=== PATIENT | female | born 1995 | race Caucasian/White ===

== ENCOUNTER → 2019-12-02 12:42 | Outpatient (CLI) | payer OTHER, SELFPAY ==
--- NOTE | 2019-12-02 | DI.RAD.S_ITS ---
PROCEDURE: FL VOIDING CYSTOURETHROGRAM INDICATIONS: urinary tract infection, site unspecified TECHNIQUE: The bladder was filled with iodinated contrast by gravity pressure through a Swain catheter. Fluoroscopic filming was then performed of the bladder, ureteral and renal regions, and urethra during patient voiding. COMPARISON: None. FINDINGS: Wildlife Control Agent view: No suspicious abdominal calcifications. Bowel gas pattern is normal. Bladder: The bladder is normal in size and contour. There is right-sided vesicoureteral reflux visualized during the filling and voiding phase, which extends to the level of the renal collecting system. No contrast extravasation. No definite left-sided vesicoureteral reflux is seen Urethra: Swain catheter tubing is present. The surrounding urethral lumen is normal in morphology. IMPRESSION: Right-sided vesicoureteral reflux to level of the renal collecting system No evidence of left-sided vesicoureteral reflux Dictated by: Llao Menendez M.D. on 12/02/2019 at 15:26 Approved by: Lalo Menendez M.D. on 12/02/2019 at 15:28
== END ==
PROVIDERS: PCP Physician Assistant; Visit Provider Specialist
DX: N39.0 Urinary tract infection, site not specified (principal); N13.70 Vesicoureteral-reflux, unspecified
CPT/HCPCS: 74455

== ENCOUNTER 2020-01-19 09:59 | Inpatient (IN) | payer OTHER, SELFPAY ==
[2020-01-08 13:52] VITALS: BMI 25.1
[2020-01-19] VITALS (14 sets, daily range): BP systolic 102–146; BP diastolic 64–81; PULSE 81–103; RESP 10–19; TEMP 36.1–37.4; O2SAT 94–100; BMI 24.9
[2020-01-19] MEDS: LACTATED RINGERS 1,000 ML 42 ML IV ×2 (10:28→14:22)
--- NOTE | 2020-01-19 12:41 | PM.PREOP ---
Pre-operative Note Interval Note History & Physical reviewed/Exam performed by Physician: Yes Changes to H&P: No H&P completed within 30 days and has changed as indicated here:: There are no changes to the history and physical examinations scanned on file.
[2020-01-19] MEDS: ACETAMINOPHEN IV 1,000 MG/100 ML VIAL 400 MG IV (12:42)
[2020-01-19] MEDS: CEFAZOLIN 2 GM/100 ML FROZ.PIGGY IV (12:45)
--- NOTE | 2020-01-19 13:46 | SUR.OPER ---
Supine on padded OR bed, head on pillow, arms secured on padded arm boards at <90 degrees abduction, LEGS FROG LEGGED AND SUPPORTED WITH BLANKETS AND GEL PADS. SEAT BELT IN PLACE
[2020-01-19] MEDS: BUPIVACAINE 0.25% W/ EPI 30 ML VIAL INJ (14:19)
[2020-01-19] MEDS: BUPIVACAINE LIPOSOME 266 MG/20 ML VIAL INJ (14:20)
--- NOTE | 2020-01-19 16:13 | P.OP_ITS ---
Operative Date/Time/Diagnoses Date of procedure: 01/19/20 Time of procedure: 16:13 Pre-op diagnosis: Grade 3 right vesicoureteral reflux Post-op diagnosis: same Procedure & Clinicians Procedure: 1. Right ureteral reimplantation. Same procedure as scheduled: Yes Indications: 1. Grade 3 right vesicoureteral reflux. 2. Recurring UTI. Surgeon: Jethro Lindsay Human Resources Assistant Manager: Natalya Meredith Click Yes if Unassisted: No Anesthesia Type: General and Spinal Operative Notes Findings: 1. The bladder urothelium was normal throughout. 2. The right ureteral orifice was mildly patulous and more laterally position. 3. Abdominal wall tissue planes normal. Closure Type: primary Specimen(s): none sent Applied: catheter and other (Six Polish by 22 cm double-J ureteral stent) Estimated Blood Loss (mL): 2 Blood products transfused: none Tourniquet time (min): 0 Procedure in detail: The patient was positioned supine after placement of Duramorph spinal anesthesia and was provided general anesthesia. The lower abdomen genitalia and groin and vaginal vault were prepped and draped in sterile fashion. She was then repositioned in semi frog-leg supine. A 20 Polish Swain catheter was inserted into the bladder without complication. A low transverse Pfannenstiel incision was then made about 1 fingerbreadth above the pubic symphysis. The subcutaneous fat and Rupert's fascial layer were divi ded using blunt and cautery technique. The rectus fascia was then divided transversely using sharp technique. The rectus muscle was then divided in the midline and gently retracted laterally. The bladder was filled to 300 cc of sterile saline via the previously placed catheter. The dome and anterior bladder wall were then identified. A solution of 0.25% Marcaine with epinephrine was then used to infiltrate the midline anterior bladder wall and midline cystotomy was then created. Retractors were positioned appropriately for visualization of the bladder trigone and orifices. The same local anesthetic was used to infiltrate S but in the area around the right ureteral orifice and a mild muscular wall the bladder. A 4 Polish whistle-tip catheter was then advanced into the right ureter upper collecting system under direct visualization. It was secured in place using a 4 0 Vicryl. Now applying gentle traction with the whistle-tip catheter the needlepoint cautery was used just create a circumferential incision around the right ureteral orifice continued meticulous the traction blunt cautery dissection were then performed to free the ureter up from the connections to the muscular wall of the bladder wall. Perivesical fat was visualized. The mucosa and submucosal of the trigone were then infiltrated with local anesthetic. A submucosal tunnel was then created using blunt sharp technique. The right ureter was then brought across the trigone beneath the mucosa and brought out through an aperture made just distal to the [place] left ureteral orifice. Two interrupted 2 0 Monocryl sutures were used to secure the newly position ureter to the right muscular wall of the bladder. Interrupted 4 0 Vicryl were then used to reanastomose the margins of the right ureteral orifice to the mucosa of the bladder in its new position. The mucosa of the right bladder wall was then closed with a running 4 0 Vicryl. The whistle-tip catheter was then removed and and a guidewire was advanced into the right upper collecting system. Over this a 6 Polish by 2 22 cm double-J ureteral stent was positioned satisfactorily. No retrieval line was left attached. The anterior midline cystotomy was then closed in 2 layers by 1st reapproximating the mucosal muscular using a running vertical mattress of 4 0 Vicryl. Next the outer serosal muscular layer was then closed using an imbricating technique again with a running vertical mattress with 2 0 Monocryl. A 15 Polish drain was then brought out through a separate stab incision to the right inferior to the Pfannenstiel incision. The length of the drain was trimmed appropriately and positioned in the space of Retzius. It was secured to the skin with 2 0 silk. The rectus fascia was then closed using running 0 PDS beginning at the lateral apex and on each side and then time with another together at approximately the midline. The subcutaneous fat Rupert's fascia was then reapproximated with running 3 0 Vicryl. Finally the skin was closed with a running subcuticular 4 0 Monocryl. Appropriately tailored Telfa was applied to the incision line and the drain and incision were then covered with a Bioclusive op site. The catheter w as placed to gravity drainage. The patient was then awakened transferred to [facility] [place] and transferred to recovery in stable condition. Complications: none Post-operative Condition: stable Disposition: PACU Plan for aftercare: Transfer to acute care.
[2020-01-19] MEDS: diphenhydrAMINE 50 MG/ML VIAL 25 MG IV (16:24)
--- NOTE | 2020-01-19 17:11 | SUR.PHASEI ---
Report to [facility]. Pt was then transferred to room 211 in stable condition. Pt did not require any pain medication for discomfort, but did however receive 25mg of benadryl r/t itching and nasal congestion. Family was at BS.
[2020-01-19] MEDS: BUTORPHANOL 1 MG/ML VIAL 0.5 MG IV (17:27)
[2020-01-19] MEDS: JOLESSA 1 EACH PO (22:04)
[2020-01-19] MEDS: SERTRALINE 50 MG TABLET 100 MG PO (22:04)
[2020-01-19] MEDS: OXYCODONE IR 5 MG TABLET PO (23:45)
[2020-01-20] VITALS (9 sets, daily range): BP systolic 104–129; BP diastolic 54–78; PULSE 71–86; RESP 16–18; TEMP 36.6–37.2; O2SAT 96–100
[2020-01-20] MEDS: ONDANSETRON 4 MG/2 ML INJ IV (02:05)
--- NOTE | 2020-01-20 06:40 | PC.NURSE ---
Upon getting up to use BSC pt feeling some light-headedness and feeling like shes going to pass out; Given some water and saltines and back into bed and it resolved. Same issue arose this morning and is subsiding with rest. Spoke to pt abt fall risks and being slow to get OOB
--- NOTE | 2020-01-20 07:27 | P.PN_ITS ---
Subjective Subjective Date Patient Seen: 01/20/20 Time Patient Seen: 07:28 Interval history: She reports some dysphoria and lightheadedness when up last evening. She has also noticed mild itching but no rash. She complains of feeling of need to ?pee?. Denies nausea or vomiting Exam Vital Signs (past 8 hours): - 01/20/20 02:17 01/20/20 03:29 Temperature 98.2 F 98.4 F Pulse Rate 73 81 Respiratory Rate 18 Blood Pressure 111/54 L 104/57 L Pulse Oximetry 97 Oxygen Delivery Method Room Air Oxygen Flow Rate 0 Narrative Exam Narrative: She is lying comfortably in bed in no distress. Chest is equal and nonlabored bilaterally. Heart regular rate. Abdomen soft nondistended JACQUELYN drain and incisional dressings intact. JACQUELYN drain has scant serosanguineous output. Urine is light maroon no clots. Extremities no pallor edema or tenderness. Sequential compression devices in pl [place]. Objective ECG Impression: 1. Stable postoperative day 1. Status post right ureteral reimplantation. 2. Bladder pain and spasms. Assessment & Plan Assessment & Plan narrative: Assessment: 1. Stable postoperative day 1. Status post right ureteral reimplantation. 2. Bladder spasms. 3. Mild itching without rash. Plan: 1. Increase diet and activity today. 2. Belladonna and opium suppository 1 per rectum q.4 hours. 3. Monitor her itching complaints. Benadryl ordered.
[2020-01-20] MEDS: BELLADONNA/OPIUM SUPPOSITORIES 1 EACH PR ×2 (08:22→19:26)
[2020-01-20] MEDS: OXYCODONE IR 5 MG TABLET PO (08:22)
[2020-01-20] MEDS: KETOROLAC 10 MG TABLET PO ×2 (12:03→18:14)
--- NOTE | 2020-01-20 13:45 | CM.DANOTE ---
DCP Assessment: EMR reviewed: Patient is a 24 yr old female who was admitted for Ureteral Procedure preformed by Dr Lindsay. CM/Rn met with patient at the bedside and explained role. Patient was alert and oriented x3 at time of CM/Rn visit. Patient is Independent with all ADL's and Driving at base line. Patient currently lives in a single level home with her spouse Peter. Patient does not use any DME at home at base line. Patients plans on being home for two weeks to assist patient with recovery. I: Prime Plan: D/C home with spouse Peter when medically stable. No identified D/C planning needs noted at this time. CM department will follow to assist with any D/C planning needs that may arise. Susi Rosa RN Discharge Planning/Care Management CM Discharge Assessment Start: 01/20/20 13:43 Freq: Status: Active Protocol: Document 01/20/20 13:43 HS (Rec: 01/20/20 13:45 [id number]) Discharge Planning Assessment Assigned [address] Pressman Susi Rosa RN DPOA/Assigned Designee Name Peter Lee (spouse) Contact Information [phone] Advance Directives? No History Provided By Patient,Medical Record Has Patient been admitted in last 30 No days? Prior Living Arrangements House Household Members spouse Type of transporation used prior to Drives own vehicle admit Independent with ADL's Yes Is patient alert and oriented? Yes Caregiver for Another No Barriers to Discharge No Discharge Plan Home Referrals Initiated None needed Whiteboard Updated in Patient Room with Yes name and ext. # of [address] Pressman Review Status In Process Next Review Type Continued Stay Review Pre-Anesthesia Assessment Start: 01/08/20 13:52 Freq: Status: Active Protocol: Document 01/08/20 13:52 CAB (Rec: 01/08/20 14:55 CAB [id number]) Pre-Anesthesia Assessment Patient Information Reviewed Via Phone Assessment Assessment Completed With Patient Primary Care Provider Peter Verma Seen Specialist in Last 12 Months Yes Specialist Seen Recreation Officer,Urologist Primary Language Azerbaijani Height 154.94 cm Weight 60.328 kg Body Mass Index (BMI) 25.1 Hearing Ability Normal Visual Assist Glasses Dentition Type Teeth, Natural Present Barriers to Learning None Other Aids No Hx Anesthesia Reactions No: Only surgery was adenoids as a child Hx Family Anesthesia Reaction No Hx Malignant Hyperthermia No Hx Blood Transfusions No Comment Wants to discuss reduced use of opioids, family hx of addiction Anesthesia Review Requested No alcohol intake never Smoking Status Never smoker Substance Use Type marijuana Pain Present Pain Reported Comment Right flank pain Musculoskeletal Symptoms Joint Pain History of Falling (Recent or History of No ) Patient is completely paralyzed or No completely immobile Mental Status Oriented to own ability Is patient on oxygen? No Does patient have RDZ/SOB No Hx Sleep Apnea No Currently Taking a Beta [place] No Can You Climb a Flight of Stairs Without Yes SOB Hx Chest Pain No Hx SOB No Hx Syncope or Dizziness No Anti-Coagulant Therapy No Has a Modeling Manager No Cardiac Testing No Hx Pacemaker/ICD No Pacemaker Rep Required? No Diet Type At Home Regular dysphagia No Gastrointestinal Symptoms Reflux Genitourinary Symptoms Difficulty Urinating,Flank Pain Bladder Pattern Frequency,Retention,Urgency Urinary Catheter Present No Hx Urinary Self Catheterization No Diabetes No Patient No Lactating No Hx Drug Resistant Organism No Presence of External or Internal Medical No Devices Burleson exposure No Have you had any close contact with No someone diagnosed with NOVEL CORONAVIRUS ? Have you traveled outside the [facility] in the last 30 days? Marital Status Lives With spouse Prior Living Arrangements House Number of Floors (Floors) One Floor Support System Parent(s),Spouse Does the Patient Have Assistance After Yes Surgery Patient Discharge Plan Description Return Home Feels Safe in Current Environment Yes Been Physically Hurt or Threatened By a No Person in Current Environment Do you have thoughts of harming yourself None or others? Are you currently considering suicide? No Do you have a plan to hurt yourself or No Plan others? Do You Have Any Spiritual Beliefs That No May Affect Your HC Choices? Do You Have Any Cultural Practices That No May Affect Your HC Choices? Comment Cade Who Can We Speak to About Patient's Care Family, friends Identifying Code for Release of Patient Declines to issue Information Health Care Proxy/Next of Kin Peter () Health Care Proxy Emergency Contact Name Peter () Emergency Contact Advance Directives? No Power of Knot Cutter No PAC Instructions Do not shave/clip surgical site,Medications to take/avoid ,No ETOH/petroleum product on skin DOS,NPO,Post-op transportation,Sensory aids, Sturdy shoes/comfortable clothes,Do not bring valuables and remove jewelry
--- NOTE | 2020-01-20 21:27 | PC.NURSE ---
Discharge Note Patient discharged this afternoon via verbal telephone order per Dr Lindsay. Orders also received to call in Toradol prescription to patients pharmacy. PIV and JACQUELYN drain removed per order by this RN without incident. Discharge instructions given to patient, no questions/concerns. All belongings packed along with supplies to manage catheter care at home. Patient taken down via wheelchair by this RN to personal vehicle.
--- NOTE | 2020-01-21 07:08 | PM.DS.1 ---
History of Present Illness History of Present Illness Date Patient Seen: 01/18/20 Time Patient Seen: 17:40 Chief complaint: Right Cystoscopy w/Ureteral Procedure Discharge Providers Provider Date of admission: 01/19/20 09:59 Discharge Date: 01/20/20 Primary care physician: Peter Verma PA-C Consults: 01/19/20 16:01 Consult to Discharge Planning Routine Comment: Discharge provider: Jethro Lindsay MD Summary Hospital Course Discharge Diagnosis: 1. Status post right ureteral reimplantation. 2. History of recurrent UTIs. Hospital Course: The patient was admitted on the morning of 01/19/2020 and underwent uncomplicated right cross-trigonal ureteral reimplantation under general and Duramorph spinal anesthesia. Her postoperative course was remarkable for dysphoria related to p.o. opioids. Once oxycodone was discontinued and she was provided ketorolac she rapidly improved. By mid did postoperative day 1. She was ambulating without assistance passing flatus tolerating a general diet had excellent pain control. She requested discharge. Postoperative activity hygiene and driving instructions were provided an appointment will be scheduled in my office for catheter removal on 01/28/2020. A prescription for ketorolac 10 mg, 1 p.o. q.6 hours as needed, 20 provided. Status at Discharge Cognitive/behavioral status at discharge: oriented Functional status at discharge: independent ambulation Overall status at discharge: patient is back to baseline Time Spent with Patient Time spent: Less than 30 minutes Exam Vital Signs (past 8 hours): Oxygen Delivery Method Room Air Oxygen Flow Rate 0 Narrative Exam Narrative: Drain and dressings were removed. Discharge Plan Discharge Plan Patient Disposition: Home Discharge comment: 1. Schedule post op appt. 01/28/20. Discharge orders & Medications Prescriptions: Continued sertraline 100 mg Tablet 100 mg PO BEDTIME RF: 0 levonorgestrel-ethinyl estrad [Jolessa] 0.15 mg-30 mcg (91) Tablets,Dose Pack,3 Month 1 tab PO BEDTIME RF: 0 Follow up/Referrals: Peter Verma PA-C [Primary Care Provider] - Jethro Lindsay MD [Physician] - Diet/Activity/Treatments Diet: Regular Activity: As tolerated Catheter: 2-way Swain Other treatments: You may restart your home medications. Skin/Wound/Dressing Care Skin care: You may shower, no bathing or soaking for 2 weeks. Report to your healthcare provider any signs of infection, such as:: chills, fever, night sweats, increased pain, unusual drainage and unusual redness Dressing: Open to air Visit Report/Discharge Packet Instructions: How to Care for Your Swain Catheter -- Female, Ketorolac, DI for Ureteral Reimplantation in Adults, Open Ureteral Reimplantation Discharge Data Primary Care Provider: Peter Verma Discharges patient from system. Discharge Date/Time: 01/20/20 20:10
== END 2020-01-20 20:10 | disposition home or self-care (01) | DRG 660 ==
PROVIDERS: Admitting Provider Specialist; PCP Physician Assistant; Referring Provider Specialist; Visit Provider Specialist
PROC: 0TS60ZZ Reposition Right Ureter, Open Approach (ICD-10-PCS; principal; 2020-01-19 11:15)
DX: N13.70 Vesicoureteral-reflux, unspecified (principal); N39.0 Urinary tract infection, site not specified; F41.9 Anxiety disorder, unspecified; N32.89 Other specified disorders of bladder; L29.9 Pruritus, unspecified; F99 Mental disorder, not otherwise specified; T40.2X5A Adverse effect of other opioids, initial encounter
CPT/HCPCS: 87086; 94762; C9290; J0131; J0595; J0690; J1100; J1200; J2250; J2274; J2405; J2704; J3010

== ENCOUNTER → 2020-03-08 10:04 | Outpatient (CLI) | payer OTHER, SELFPAY ==
[2020-01-19 11:28] VITALS: BMI 24.9
--- NOTE | 2020-03-08 | DI.CT.S_ITS ---
PROCEDURE: CT PEL WO CON INDICATIONS: LEFT LOWER QUADRANT PAIN. Patient states that she had a right ureteral implant procedure approximately one month ago, and that the ureter now implants on the left. TECHNIQUE: Noncontrast 3 mm axial sections acquired through the bony pelvis, with coronal and sagittal reformatting. COMPARISON: [facility], CT, CT KUB, 10/15/2019, 16:15. FINDINGS: Image quality: Excellent. Bones: Unremarkable Soft tissues: There is a small ovoid thin walled fluid collection posterior to the rectum, immediately anterior to the distal sacrum measuring approximately 1.9 x 2.7 x 3.6 cm, possibly representing a small postoperative lymphocele. The distal ureters are not dilated. No abscess. IMPRESSION: Probable small postoperative lymphocele posterior to the rectum in the presacral space. Otherwise unremarkable. Dictated by: Arnaldo Dobbs M.D. on 03/08/2020 at 10:40 Approved by: Arnaldo Dobbs M.D. on 03/08/2020 at 10:44
== END ==
PROVIDERS: PCP Physician Assistant; Referring Provider Specialist; Visit Provider Specialist
DX: R10.32 Left lower quadrant pain (principal)
CPT/HCPCS: 72192

== ENCOUNTER → 2020-03-19 09:16 | Outpatient (CLI) | payer OTHER, SELFPAY ==
[2020-01-19 11:28] VITALS: BMI 24.9
== END ==
PROVIDERS: PCP Physician Assistant; Referring Provider Specialist; Visit Provider Specialist
DX: N13.70 Vesicoureteral-reflux, unspecified (principal); Z53.8 Procedure and treatment not carried out for other reasons

== ENCOUNTER → 2020-04-01 10:19 | Outpatient (CLI) | payer OTHER, SELFPAY ==
[2020-01-19 11:28] VITALS: BMI 24.9
--- NOTE | 2020-04-01 | DI.RAD.S_ITS ---
PROCEDURE: FL VOIDING CYSTOURETHROGRAM INDICATIONS: vesicourtereral reflux, unspec TECHNIQUE: The bladder was filled with iodinated contrast by gravity pressure through a Swain catheter. Fluoroscopic filming was then performed of the bladder, ureteral and renal regions, and urethra during patient voiding. COMPARISON: [place], [place] VOIDING CYSTOURETHROGRAM, 12/02/2019, 13:18. FINDINGS: The patient reports prior history of reflux and recurrent urinary tract infections. Ureteral reimplantation procedure. Court Administrator view: No suspicious abdominal calcifications. Bowel gas pattern is normal. Bladder: The bladder is normal in size and contour. No vesicoureteral reflux. No contrast extravasation. Urethra: Swain catheter tubing is present. The surrounding urethral lumen is normal in morphology. IMPRESSION: No vesicoureteral reflux, bladder empties fully. No urinary tract stone suspected. Findings discussed with the patient. Dictated by: Ranjit Cleaning M.D. on 04/01/2020 at 12:31 Approved by: Ranjit Cleaning M.D. on 04/01/2020 at 12:32
== END ==
PROVIDERS: PCP Physician Assistant; Referring Provider Specialist; Visit Provider Specialist
DX: N13.70 Vesicoureteral-reflux, unspecified (principal)
CPT/HCPCS: 74455

== ENCOUNTER → 2020-07-30 16:28 | Outpatient (CLI) | payer OTHER, SELFPAY ==
[2020-01-19 11:28] VITALS: BMI 24.9
[2020-07-30 17:58] LABS: Appearance Urine UA SL CLOUDY; Bilirubin Urine UA NEGATIVE (NEGATIVE); Color Urine UA YELLOW; Glucose Urine UA NEGATIVE (Negative); Ketones Urine UA TRACE (NEGATIVE); Leukocyte Esterase Urine UA NEGATIVE (NEGATIVE); Nitrite Urine UA NEGATIVE (Negative); Occult Blood Urine UA 2+ (Negative); Protein Urine UA NEGATIVE (Negative); Urobilinogen Urine UA 0.2 E.U./dL (0.2)
[2020-07-30 18:22] LABS: Amorphous Sediment Urine 2+; Bacteria Urine None Seen; Culture Indicated Urine Cult Not Indicated; Mucus Urine 2+ (Negative); RBC Urine 1-5/HPF (0-5/HPF); Squamous Epithelial Cell Urine 5-10 /HPF (0-5/HPF); WBC Urine 0-1/HPF (0-5/HPF)
== END ==
PROVIDERS: PCP Physician Assistant; Referring Provider Specialist; Visit Provider Specialist
DX: N39.0 Urinary tract infection, site not specified (principal)
CPT/HCPCS: 81003; 81015

== ENCOUNTER 2020-11-12 17:50 | Emergency (ER) | payer OTHER, SELFPAY ==
[2020-01-19 11:28] VITALS: BMI 24.9
[2020-11-12 17:53] VITALS: BP 169/104; PULSE 90; RESP 16; TEMP 37.2; O2SAT 100
--- NOTE | 2020-11-12 18:28 | DI.RAD.S_ITS ---
PROCEDURE: XR CHEST 1V INDICATIONS: chest pain TECHNIQUE: One view of the chest was acquired. COMPARISON: None. FINDINGS: Surgical changes and devices: None. Lungs and pleura: Lungs are clear. No pleural effusions or pneumothorax. Mediastinum: Mediastinal contours appear normal. Heart size is normal. Bones and chest wall: No suspicious bony lesions. Overlying soft tissues appear unremarkable. IMPRESSION: No acute disease. Dictated by: Lalo Menendez M.D. on 11/12/2020 at 20:18 Approved by: Lalo Menendez M.D. on 11/12/2020 at 20:19
[2020-11-12 18:40] LABS: Prothrombin Time 11.7 SECONDS (10.1-12.7)
[2020-11-12 18:43] LABS: PTT Partial Thromboplastin Tim 27 SECONDS (26.4-36.2)
[2020-11-12 18:44] LABS: Alanine Aminotransferase 13 IU/L (<35); Albumin 4.3 g/dL (3.5-5.0); Albumin Globulin Ratio 1.3 (1.0-2.8); Alkaline Phosphatase 57 U/L (38-126); Aspartate Aminotransferase 31 IU/L (14-36); BUN Creatinine Ratio 20.7 (6-22); Bilirubin Total 0.2 mg/dL (0.2-1.3); Blood Urea Nitrogen 12 mg/dL (7-17); Calcium 9.1 mg/dL (8.4-10.2); Carbon Dioxide 23 mmol/L (22-32); Chloride 107 mmol/L (98-107); Creatine Kinase 102 U/L (30-135); Estimated Glomerular Filt Rate > 60.0 mL/min (>60); Globulin 3.4 g/dL (1.7-4.1); Glucose 106 mg/dL (70-100); HEMOLYSIS 16 (0-50); Lipase 36 U/L (23-300); Potassium 3.9 mmol/L (3.4-5.1); Sodium 139 mmol/L (137-145); Total Protein 7.7 g/dL (6.3-8.2)
[2020-11-12 18:45] LABS: Add Manual Diff / Slide Review NO; Basophils Absolute Auto 100 /uL (0-100); Basophils Percent Auto 1.1 % (0-2); Eosinophils Absolute Auto 300 /uL (0-450); Hematocrit 39.3 % (36-46); Hemoglobin 13.3 g/dL (12.0-16.0); Lymphocytes Absolute Auto 2900 /uL (1100-4500); Lymphocytes Percent Auto 35.3 % (25-40); Mean Corpuscular HGB Conc 33.9 % (30-36); Mean Corpuscular Volume 94.6 fL (80-100); Monocytes Absolute Auto 700 /uL (0-900); Neutrophils Absolute Auto 4300 /uL (1500-7000); Neutrophils Percent Auto 51.6 % (50-75); Platelet Count 320 X10^3/uL (150-400); Red Blood Cell Count 4.16 X10^6/uL (4.0-5.2); Red Cell Distribution Width 13.1 % (11.6-14.8); White Blood Cell Count 8.3 X10^3/uL (4.5-11.0)
[2020-11-12 18:56] LABS: Troponin I < 0.012 ng/mL (0.01-0.034)
[2020-11-12 19:00] LABS: CKMB % Relative Index 0.2 % (1.5-5.0); Creatine Kinase MB 0.23 ng/mL (<2.37)
--- NOTE | 2020-11-12 19:25 | ED.ARRPALP ---
HPI - Arrhythmia/Palpitations General Chief Complaint: Arrhythmia/Palpitations Stated Complaint: rapid heart week all week Time Seen by Provider: 11/12/20 19:24 Source: patient Mode of arrival: Ambulatory Limitations: no limitations History of Present Illness HPI narrative: 25-year-old female nonsmoker with a mental health history presents with her significant other and a chief complaint of rapid heart rate over the course of the week. She denies dizziness, weakness or lightheadedness. She denies any chest pain or shortness of breath. She denies any changes in her medications or diet. She has had no nausea, vomiting or diarrhea. She denies any dysuria, frequency or urgency. She denies any history of the same. She has had no long distance travel, history of blood clot, cancer but she does take control. MD complaint: rapid heart beat and heart racing Onset (ago): day(s) Duration: constant Severity: moderate Associated symptoms: denies other symptoms Related Data Home Medications Medication Instructions Recorded Confirmed levonorgestrel-ethinyl estrad 1 tab PO BEDTIME 01/08/20 10/13/20 [Jolessa] sertraline 100 mg PO BEDTIME 01/08/20 10/13/20 clonidine HCl 0.1 mg tablet 0.1 mg PO BEDTIME 10/13/20 10/13/20 methylphenidate 25.9 mg ER,IR 25.9 mg PO QAM 10/13/20 10/13/20 disintegrating 24 hr tablet Allergies Allergy/AdvReac Type Severity Reaction Status Date / Time No Known Drug Allergies Allergy Verified 10/13/20 13:49 Review of Systems Constitutional Constitutional: Denies chills, Denies fatigue, Denies fever(s), Denies frequent falls, Denies lethargy and Denies weakness Eyes Eyes: Denies change in vision, Denies eye discharge, Denies irritation and Denies loss of vision ENT Ears, Nose, Mouth, and Throat: Denies change in voice, Denies dizziness, Denies neck pain, Denies sore throat and Denies throat swelling Cardiovascular Cardiovascular: Denies chest pain, Reports rapid heart rate, Denies irregular heart rhythm, Denies lightheadedness, Denies palpitations, Denies dyspnea, Denies dyspnea on exertion and Denies orthopnea Respiratory Respiratory: Denies cough, Denies dyspnea, Denies dyspnea on exertion and Denies wheezing Gastrointestinal Gastrointestinal: Denies abdominal pain, Denies change in bowel habits, Denies diarrhea, Denies nausea and Denies vomiting Musculoskeletal Musculoskeletal: Denies neck pain and Denies numbness Integumentary/Breasts Skin/Breast: Denies pruritus, Denies erythema, Denies rash and Denies wounds Neurologic Neurologic: Denies behavioral changes, Denies confusion, Denies dizziness, Denies frequent falls, Denies loss of vision, Denies numbness and Denies weakness Psychiatric Psychiatric: Denies anxiety, Denies behavioral changes, Denies confusion, Denies depression, Denies homicidal ideation and Denies suicidal ideation Endocrine Endocrine: Denies fatigue, Denies flushing and Denies palpitations Hematologic/Lymphatic Hematologic/Lymphatic: Denies easy bruising Allergic/Immunologic Allergic/Immunologic: Denies urticaria, Denies throat swelling and Denies wheezing Patient History Medical History Anxiety Depression Difficulty urinating Dysuria Heartburn History of vesicoureteral reflux HTN (hypertension) Lower urinary tract symptoms (LUTS) OCD (obsessive compulsive disorder) Seasonal allergies Surgical History Hx of adenoidectomy S/P ureteral reimplantation Family History Father Depression Social History marital status: household members: spouse Smoking Status: Never smoker alcohol intake: never Smoking Status: Never smoker Substance Use Type: does not use Exam Narrative Exam Narrative: GENERAL: [25] year old patient appears stated age. Well-nourished, well-developed patient, in mild distress. HEAD: Atraumatic. Normocephalic. EYES: Pupils equal round and reactive. Extraocular motions intact. No scleral icterus. No injection or drainage. ENT: Nose without bleeding, purulent drainage. Throat without erythema, tonsillar hypertrophy or exudate. Airway patent. NECK: Trachea midline. Non tender CARDIOVASCULAR: Regular rate and rhythm without murmurs, gallops, or rubs. RESPIRATORY: Clear to auscultation. Breath sounds equal bilaterally. No wheezes, rales, or rhonchi. GASTROINTESTINAL: Abdomen soft, non-tender, nondistended. EXTREMITIES: No edema or joint tenderness. BACK: Nontender without deformity or crepitance. No flank tenderness. NEURO: AOx3. SKIN: No rash or erythema of visible areas Initial Vital Signs Initial Vital Signs: Vital Signs Temperature 99.0 F 11/12/20 17:53 Pulse Rate 90 11/12/20 17:53 Respiratory Rate 16 11/12/20 17:53 Blood Pressure 169/104 H 11/12/20 17:53 Pulse Oximetry 100 11/12/20 17:53 Course Orders Ordered: ED Orders 11/12/20 18:00 EKG-12 Lead Stat 11/12/20 18:24 TSH w/ Reflex to FT4 Stat 11/12/20 18:25 Complete Blood Count AUTO DIFF Stat Comprehensive Metabolic Panel Stat D Dimer Stat Lipase Stat Partial Thromboplastin Time Stat Prothrombin Time INR Stat Troponin & CK Cardiac Panel Stat 11/12/20 18:28 XR chest 1V Stat Vital Signs Vital signs: Vital Signs - 8 hr 11/12/20 20:30 Pulse Rate 81 Respiratory Rate 22 MDM - Arrhythmia/Palpitations Lab Data Result diagrams: 11/12/20 18:25 11/12/20 18:25 Labs: Lab Results 11/12/20 11/12/20 11/12/20 Range/Units 18:24 18:25 18:25 WBC 8.3 (4.5-11.0) X10^3/uL RBC 4.16 (4.0-5.2) X10^6/uL Hgb 13.3 (12.0-16.0) g/dL Hct 39.3 (36-46) % MCV 94.6 (80-100) fL MCH 32.0 (26-34) PG MCHC 33.9 (30-36) % RDW 13.1 (11.6-14.8) % Plt Count 320 (150-400) X10^3/uL Neut % (Auto) 51.6 (50-75) % Lymph % (Auto) 35.3 (25-40) % Conway % (Auto) 8.0 (3-14) % Eos % (Auto) 4.0 (2-4) % Baso % (Auto) 1.1 (0-2) % Neut # (Auto) 4300 (7410-5215) /uL Lymph # (Auto) 2900 (9361-9904) /uL Conway # (Auto) 700 (0-900) /uL Eos # (Auto) 300 (0-450) /uL Baso # (Auto) 100 (0-100) /uL PT 11.7 (10.1-12.7) SECONDS INR 1.0 (0.9-1.3) APTT 27 (26.4-36.2) SECONDS D-Dimer (<230) ng/mL Sodium (137-145) mmol/L Potassium (3.4-5.1) mmol/L Chloride (98-107) mmol/L Carbon Dioxide (22-32) mmol/L BUN (7-17) mg/dL Creatinine (0.52-1.04) mg/dL Estimated GFR (>60) mL/min BUN/Creatinine Ratio (6-22) Glucose (70-100) mg/dL Calcium (8.4-10.2) mg/dL Total Bilirubin (0.2-1.3) mg/dL AST (14-36) IU/L ALT (<35) IU/L Alkaline Phosphatase (38-126) U/L Total Creatine Kinase (30-135) U/L CK-MB (CK-2) (<2.37) ng/mL CK-MB (CK-2) Rel Index (1.5-5.0) % Troponin I (0.01-0.034) ng/mL Total Protein (6.3-8.2) g/dL Albumin (3.5-5.0) g/dL Globulin (1.7-4.1) g/dL Albumin/Globulin Ratio (1.0-2.8) Lipase (23-300) U/L TSH 2.95 (0.47-4.68) uIU/mL 11/12/20 11/12/20 Range/Units 18:25 18:25 WBC (4.5-11.0) X10^3/uL RBC (4.0-5.2) X10^6/uL Hgb (12.0-16.0) g/dL Hct (36-46) % MCV (80-100) fL MCH (26-34) PG MCHC (30-36) % RDW (11.6-14.8) % Plt Count (150-400) X10^3/uL Neut % (Auto) (50-75) % Lymph % (Auto) (25-40) % Conway % (Auto) (3-14) % Eos % (Auto) (2-4) % Baso % (Auto) (0-2) % Neut # (Auto) (1629-5922) /uL Lymph # (Auto) (6024-8723) /uL Conway # (Auto) (0-900) /uL Eos # (Auto) (0-450) /uL Baso # (Auto) (0-100) /uL PT (10.1-12.7) SECONDS INR (0.9-1.3) APTT (26.4-36.2) SECONDS D-Dimer < 200 (<230) ng/mL Sodium 139 (137-145) mmol/L Potassium 3.9 (3.4-5.1) mmol/L Chloride 107 (98-107) mmol/L Carbon Dioxide 23 (22-32) mmol/L BUN 12 (7-17) mg/dL Creatinine 0.58 (0.52-1.04) mg/dL Estimated GFR > 60.0 (>60) mL/min BUN/Creatinine Ratio 20.7 (6-22) Glucose 106 H (70-100) mg/dL Calcium 9.1 (8.4-10.2) mg/dL Total Bilirubin 0.2 (0.2-1.3) mg/dL AST 31 (14-36) IU/L ALT 13 (<35) IU/L Alkaline Phosphatase 57 (38-126) U/L Total Creatine Kinase 102 (30-135) U/L CK-MB (CK-2) 0.23 (<2.37) ng/mL CK-MB (CK-2) Rel Index 0.2 L (1.5-5.0) % Troponin I < 0.012 (0.01-0.034) ng/mL Total Protein 7.7 (6.3-8.2) g/dL Albumin 4.3 (3.5-5.0) g/dL Globulin 3.4 (1.7-4.1) g/dL Albumin/Globulin Ratio 1.3 (1.0-2.8) Lipase 36 (23-300) U/L TSH (0.47-4.68) uIU/mL ECG Data Attestation: I personally reviewed and interpreted this ECG as follows: Interpretation: EKG is normal sinus rhythm rate [92 ] and free of any signs of ischemia or ectopy. No ST segmental elevation or depression. No T wave inversions Discharge Plan Departure Patient Disposition: Home Clinical Impression: Palpitations Instructions: DI for Palpitations Activity Restrictions/Additional Instructions: *You have been diagnosed with [palpitations, with very reassuring labs and evaluate] *What to do: *Take medications as directed *Follow up with your primary care provider in 2-3 days, call for an appointment. Let them know you were seen in the Emergency Department and that we ask that you be seen in follow up *Return to ER if you should have any new, worsening or concerning symptoms Prescriptions: No Action sertraline 100 mg Tablet 100 mg PO BEDTIME RF: 0 levonorgestrel-ethinyl estrad [Jolessa] 0.15 mg-30 mcg (91) Tablets,Dose Pack,3 Month 1 tab PO BEDTIME RF: 0 methylphenidate 25.9 mg tablet,disinteg ER biphase 24h 25.9 mg PO QAM RF: 0 clonidine HCl 0.1 mg tablet 0.1 mg PO BEDTIME RF: 0
[2020-11-12 19:59] VITALS: PULSE 85
[2020-11-12 20:00] VITALS: BP 165/115; PULSE 94; RESP 16; O2SAT 99
[2020-11-12 20:07] LABS: D Dimer < 200 ng/mL (<230)
[2020-11-12 20:30] VITALS: PULSE 81; RESP 22
[2020-11-12 20:34] LABS: TSH w/ Reflex to FT4 2.95 uIU/mL (0.47-4.68)
== END 2020-11-12 20:55 | disposition home or self-care (01) ==
PROVIDERS: Emergency Provider Emergency Medicine
DX: R00.2 Palpitations (principal); I10 Essential (primary) hypertension
CPT/HCPCS: 36415; 71045; 80053; 82550; 82553; 83690; 84443; 84484; 85025; 85379; 85610; 85730; 93005; 99284

== ENCOUNTER → 2020-12-14 08:28 | Outpatient (CLI) | payer OTHER, SELFPAY ==
[2020-01-19 11:28] VITALS: BMI 24.9
--- NOTE | 2020-12-14 08:29 | DI.RAD.S_ITS ---
PROCEDURE: [place] VOIDING CYSTOURETHROGRAM INDICATIONS: History of vesicoureteral relflux TECHNIQUE: The bladder was filled with iodinated contrast by gravity pressure through a Swain catheter. Approximately 400 ML Cystographin was instilled into the urinary bladder. Swain catheter was then removed. Fluoroscopic filming was then performed of the bladder, ureteral and renal regions, and urethra during patient voiding. COMPARISON: [facility], , [place] VOIDING CYSTOURETHROGRAM, 12/02/2019, 13:18. [facility], , [place] ABDOMEN/PELVIS WITH CONTRAST, 08/19/2020, 10:07. [facility], [place], [place] VOIDING CYSTOURETHROGRAM, 04/01/2020, 9:45. [facility], CT, CT PEL WO CON, 03/08/2020, 10:05. [facility], CR, XR CHEST 1V, 11/12/2020, 19:37. FINDINGS: Reconciliation Analyst view: No suspicious abdominal calcifications. Bowel gas pattern is normal. Bladder: The bladder is normal in size and contour. No vesicoureteral reflux. No contrast extravasation. Bladder empties near completely. Urethra: Swain catheter tubing is present. The surrounding urethral lumen is normal in morphology. IMPRESSION: No vesicoureteral reflux visualized. Dictated by: Lawson Leigh M.D. on 12/14/2020 at 10:06 Approved by: Lawson Leigh M.D. on 12/14/2020 at 10:12
--- NOTE | 2020-12-14 09:35 | PC.NURSE ---
Placed 16 mosotho Swain Catheter without complications. Cleaned pt with Iodine. D/c'd Swain without complications.
== END ==
PROVIDERS: Referring Provider Specialist; Visit Provider Specialist
DX: Z09 Encounter for follow-up examination after completed treatment for conditions other than malignant neoplasm (principal); Z87.448 Personal history of other diseases of urinary system
CPT/HCPCS: 74455